=== PATIENT | female | born 1940 | race Caucasian/White ===

== ENCOUNTER 2018-03-20 15:56 | Observation (INO) ==
[2018-03-20] MEDS ORDERED: Sod Chloride 0.9% Inj 1,000 ML IV.CONT SCH (16:00)
--- NOTE | 2018-03-20 16:18 | ED ---
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 Last known well is unclear and may be noon but this has not been confirmed. I spoke with the daughter who stated that she spoke with the patient at 9 AM at which time she was normal. She spoke with her several minutes before calling EMS when she noticed that she had slurred speech and seemed to be confused. She then called family member who went to check on the patient and found her with a facial droop at which time they called EMS. EMS reports a normal blood sugar and blood pressure. The symptoms have not changed since they picked her up. It is very difficult for me to try and understand the patient; when asked when she was last normal she responds with "9, 8, 7, 6, 5, 4, I don't know." Onset (ago): hour(s) Location: Reports speech and left face History of same: No Severity: moderate Exacerbating factors: none On Anticoagulants: No Associated symptoms: Reports denies other symptoms Treatments Prior to Arrival: Reports none Related Data Home Medications Medication Instructions Recorded Confirmed buspirone 15 mg PO BID 03/20/18 03/20/18 diclofenac sodium 75 mg PO BID 03/20/18 03/20/18 docusate sodium 100 mg PO DAILY 03/20/18 03/20/18 levetiracetam 500 mg PO BID 03/20/18 03/20/18 lorazepam 0.5 mg PO TID 03/20/18 03/20/18 lovastatin 40 mg PO DAILY 03/20/18 03/20/18 magnesium citrate 100 mg PO DAILY 03/20/18 03/20/18 metoprolol succinate 25 mg PO DAILY 03/20/18 03/20/18 ondansetron HCl [Zofran] 4 mg PO TID PRN 03/20/18 03/20/18 oxycodone 15 mg PO Q4-6H PRN 03/20/18 03/20/18 prochlorperazine maleate 10 mg PO Q6-8H PRN 03/20/18 03/20/18 venlafaxine 75 mg PO BID 03/20/18 03/20/18 Allergies Allergy/AdvReac Type Severity Reaction Status Date / Time No Known Allergies Allergy Verified 03/20/18 15:59 Review of Systems ROS: all other systems reviewed are negative PMFSH Medical History Medical History Glioblastoma (Chronic) Hypertension (Chronic) Surgical History Surgical History History of bilateral knee replacement (Acute) History of brain surgery (Acute) Family History Family History Other Family history non-contributory Social History Social History Substance History: No History of Abuse Second Hand Smoke Exposure: No Smoking Status: Never smoker How Often Do You Have a Drink Containing Alcohol: Never Recent Travel in [facility] within the Last 8 Weeks: No Recent Out of Country Travel within the Last 8 Weeks: No Exam Narrative Exam Narrative: GENERAL: Well-nourished, well-developed patient, anxious SKIN: Focused skin assessment warm/dry. No rashes. HEAD: Atraumatic. Normocephalic. EYES: Pupils equal and round. No scleral icterus. No injection or drainage. ENT: No nasal bleeding or discharge. Mucous membranes pink and moist. NECK: Trachea midline. No JVD. CARDIOVASCULAR: Regular rate and rhythm. No murmur appreciated. Intact and equal peripheral pulses. RESPIRATORY: No accessory muscle use. Clear to auscultation. Breath sounds equal bilaterally. GASTROINTESTINAL: Abdomen soft, non-tender, nondistended. Hepatic and splenic margins not palpable. MUSCULOSKELETAL: No obvious deformities. No clubbing. No cyanosis. No edema. NEUROLOGICAL: Awake and alert. Marked L facial droop. Slurred speech with some aphasia and confusion. No pronator drift. No appreciable weakness in the extremities. Difficult to test sensation and visual ellsworth secondary to patient 's confusion, dysarthria and aphasia. PSYCHIATRIC: Anxious Course Reevaluation(s) Reevaluation #1: Patient's speech has markedly improved and facial droop is less prominent. Time: 16:36 Consultations Consultation #1: I spoke with Dr Berger, neurologist, whom recommended CT and CTA. Time: 16:01 Consultation #2: I again spoke with Dr Berger, whom stated that the non-contrast CT was okay and he is awaiting CTA results. 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 He stated that there was not something that IR could retrieve. He recommended admission with neurology consult and for her to have 81 mg aspirin daily (presuming she passes the swallow study). Time: 16:54 Initial Documented Vital Signs Temperature 97.9 F 03/20/18 16:32 Pulse Rate 72 03/20/18 16:32 Respiratory Rate 18 03/20/18 16:32 Blood Pressure 173/75 H 03/20/18 16:32 Pulse Oximetry 97 03/20/18 16:32 Last Documented Vital Signs Temperature 97.9 F 03/20/18 16:32 Pulse Rate 75 03/20/18 17:58 Respiratory Rate 18 03/20/18 17:58 Blood Pressure 178/79 H 03/20/18 17:58 Pulse Oximetry 100 03/20/18 17:45 NIH Stroke Scale NIH Stroke Scale Level of Consciousness: 0-Alert Orientation Questions: 1-One task correct Responds to Commands: 0-Both tasks correct Gaze Eye Movement: 0-Horizontal movement WNL Visual Ellsworth: 0-No visual field defect Facial Movement: 2-Partial facial palsy Motor Functions Arm LEFT: 0-No drift Motor Functions Arm RIGHT: 0-No drift Motor Functions Leg LEFT: 0-No drift Motor Functions Leg RIGHT: 0-No drift Limb Ataxia: 0-No ataxia Sensory Loss: 0-No sensory loss Best Language: 1-Mild aphasia Articulation: 1-Mild dysarthia Extinction or Inattention Sensory: 0-Absent Total: 5 Quality Measure Queries Stroke Last date observed well: 03/20/18 Last time observed well: 12:00 Medical Decision Making [facility] Narrative Medical decision making narrative: Patient is a 77-year-old female who presented as a stroke alert with left-sided facial droop, aphasia, dysarthria and some confusion. She is not a candidate for TPA given her medical problems and the lack of an actual last known well time. 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 Dr. Berger, neurologist communications equipment installer, recommended that she be admitted and receive baby aspirin in addition to the rest of the stroke workup. She has been admitted to Dr. Zaragoza, hospitalist communications equipment installer, further evaluation and management. She has had great improvement in her symptoms while in the emergency department. Medical Screen Exam Complete: Yes Emergency Medical Condition: Yes Differential Diagnosis Differential Diagnosis: Differential diagnosis includes but is not limited to intracranial hemorrhage, cerebrovascular accident, focal seizure. Medical Records Medical records reviewed: Yes I reviewed the patient's medical records. Lab Data Result diagrams: 03/20/18 16:13 03/20/18 16:13 Lab Results 03/20/18 03/20/18 03/20/18 Range/Units 16:13 16:13 16:13 CBC w Diff Auto diff final WBC 2.6 L (4.0-11.0) th/mm3 RBC 4.18 (4.00-5.30) mil/mm3 Hgb 13.0 (11.6-15.3) gm/dL Hct 39.3 (35.0-46.0) % MCV 94.0 (80.0-100.0) fL MCH 31.2 (27.0-34.0) pg MCHC 33.2 (32.0-36.0) % RDW 14.5 (11.6-17.2) % Plt Count 105 L (150-450) th/mm3 MPV 8.1 (7.0-11.0) fL Neut % (Auto) 83.4 H (16.0-70.0) % Lymph % (Auto) 9.7 (9.0-44.0) % [place] % (Auto) 6.2 (0.0-8.0) % Eos % (Auto) 0.6 (0.0-4.0) % Baso % (Auto) 0.1 (0.0-2.0) % Neut # (Auto) 2.1 (1.8-7.7) th/mm3 Lymph # (Auto) 0.3 L (1.0-4.8) th/mm3 [place] # (Auto) 0.2 (0.0-0.9) th/mm3 Eos # (Auto) 0.0 (0.0-0.4) th/mm3 Baso # (Auto) 0.0 (0.0-0.2) th/mm3 WBC Differential . Differential Comment . PT 10.7 (9.8-11.6) sec INR 1.1 Ratio APTT 26.2 (23.4-31.7) sec Sodium 140 (136-145) meq/L Potassium 4.2 (3.5-5.1) meq/L Chloride 104 (98-107) meq/L Carbon Dioxide 28.4 (21.0-32.0) meq/L Anion Gap 8 (5-15) meq/L BUN 17 (7-18) mg/dL Creatinine 0.93 (0.50-1.00) mg/dL Estimated GFR 59 L (>89) mL/min POC Glucose (68-110) mg/dl Random Glucose 105 (74-106) mg/dL Calcium 8.4 L (8.5-10.1) mg/dL Total Creatine Kinase 46 (26-192) U/L Troponin I Less than 0.02 L (0.02-0.05) ng/mL Urine Color (Yellw/Straw) Urine Clarity (Clear) Urine pH (5.0-8.5) Ur Specific [place] (1.002-1.035) Urine Protein (Neg-Trace) mg/dL Urine Glucose (UA) (Negative) mg/dL Urine Ketones (Negative) mg/dL Urine Occult Blood (Negative) Urine Nitrate (Negative) Urine Bilirubin (Negative) Urine Urobilinogen (Less than 2) mg/dL Ur Leukocyte Esterase (Negative) Micro UA Comment Ur Microscopic Review Urine Culture Comments Urine Collection Time hours 03/20/18 03/20/18 Range/Units 16:33 17:02 CBC w Diff WBC (4.0-11.0) th/mm3 RBC (4.00-5.30) mil/mm3 Hgb (11.6-15.3) gm/dL Hct (35.0-46.0) % MCV (80.0-100.0) fL MCH (27.0-34.0) pg MCHC (32.0-36.0) % RDW (11.6-17.2) % Plt Count (150-450) th/mm3 MPV (7.0-11.0) fL Neut % (Auto) (16.0-70.0) % Lymph % (Auto) (9.0-44.0) % [place] % (Auto) (0.0-8.0) % Eos % (Auto) (0.0-4.0) % Baso % (Auto) (0.0-2.0) % Neut # (Auto) (1.8-7.7) th/mm3 Lymph # (Auto) (1.0-4.8) th/mm3 [place] # (Auto) (0.0-0.9) th/mm3 Eos # (Auto) (0.0-0.4) th/mm3 Baso # (Auto) (0.0-0.2) th/mm3 WBC Differential Differential Comment PT (9.8-11.6) sec INR Ratio APTT (23.4-31.7) sec Sodium (136-145) meq/L Potassium (3.5-5.1) meq/L Chloride (98-107) meq/L Carbon Dioxide (21.0-32.0) meq/L Anion Gap (5-15) meq/L BUN (7-18) mg/dL Creatinine (0.50-1.00) mg/dL Estimated GFR (>89) mL/min POC Glucose 97 (68-110) mg/dl Random Glucose (74-106) mg/dL Calcium (8.5-10.1) mg/dL Total Creatine Kinase (26-192) U/L Troponin I (0.02-0.05) ng/mL Urine Color Yellow (Yellw/Straw) Urine Clarity Clear (Clear) Urine pH 7.0 (5.0-8.5) Ur Specific [place] Less/equal 1.005 (1.002-1.035) Urine Protein Negative (Neg-Trace) mg/dL Urine Glucose (UA) Negative (Negative) mg/dL Urine Ketones Negative (Negative) mg/dL Urine Occult Blood Negative (Negative) Urine Nitrate Negative (Negative) Urine Bilirubin Negative (Negative) Urine Urobilinogen 0.2 (Less than 2) mg/dL Ur Leukocyte Esterase Negative (Negative) Micro UA Comment Culture not ind Ur Microscopic Review Microscopic reviewed Urine Culture Comments Culture not ind Urine Collection Time 1702 hours Imaging Data Radiologist's impression: Head CT 03/20/18 15:59 CONCLUSION: 1. Mild periventricular and subcortical white matter small vessel ischemic changes which are slightly worse on the left than the right. 2. No acute infarct, acute hemorrhage, midline shift or extra axial fluid collections. Findings were discussed with Dr. Berger at 4:24 PM on 03/20/2018. Head CTA 03/20/18 16:00 CONCLUSION: 1. Complete occlusion of the left carotid system felt to be chronic in nature with good collateralization intracranially. Report was called by [ to Dr. Berger at 1648 hours ] Neck CTA 03/20/18 16:00 CONCLUSION: 1. Chronic appearing occlusion of the left carotid arteries with reconstitution of the left anterior circulation via anterior to indicating artery. 2. No significant right carotid flow-limiting stenosis. 3. Vertebral arteries are patent bilaterally. 4. Partially imaged airspace consolidation in the left upper lobe. Consider further evaluation with chest radiographs. Findings were personally discussed with Dr. Berger at 1650 p.m. Discharge Plan Discharge Disposition Patient Disposition: 30 Still Patient Discharge Condition Condition: Stable Discharge Details Diagnosis: Acute cerebrovascular accident Physicians Team ED Provider: Abena Dong Primary Care Provider: UNKNOWN, Attending Provider: Matthew Zaragoza Other Providers: Bridgette Webster Discharge Interventions Interventions: ED Discharge Assessment Last Done: 03/20/18 18:48 Status ED Status: Admitted Patient
--- NOTE | 2018-03-20 16:26 | CT ---
EXAM DATE: 03/20/2018 4:11 PM EST AGE/SEX: 77 years / Female INDICATIONS: STROKE ALERT CLINICAL DATA: This is the patient's initial encounter. Patient reports that signs and symptoms have been present for 1 day and indicates a pain score of Nonresponsive. MEDICAL/SURGICAL HISTORY: Non-responsive. Non-responsive. RADIATION DOSE: 53.86 CTDI (mGy) COMPARISON: No prior exams available for comparison. TECHNIQUE: CT of the head without contrast. Using automated exposure control and adjustment of the mA and/or kV according to patient size, radiation dose was kept as low as reasonably achievable to ob tain optimal diagnostic quality images. DICOM format image data is available electronically for revi ew and comparison. FINDINGS: Cerebrum: The ventricles are normal for age. No evidence of midline shift, mass lesion, hemorrhage or acute infarction. No extraaxial fluid collections are seen. Mild periventricular and subcortical white matter small vessel ischemic changes are noted and are slightly worse on the left than the righ t. Posterior Fossa: The cerebellum and brainstem are intact. The 4th ventricle is midline. The cerebe llopontine angle is unremarkable. Extracranial: The visualized portion of the orbits is intact. Skull: The calvaria is intact. No evidence of skull fracture. CONCLUSION: 1. Mild periventricular and subcortical white matter small vessel ischemic changes which are slightl y worse on the left than the right. 2. No acute infarct, acute hemorrhage, midline shift or extra axial fluid collections. Findings were discussed with Dr. Berger at 4:24 PM on 03/20/2018. Electronically signed by: Matthew Saravia MD 03/20/2018 4:25 PM EST
[2018-03-20 16:27] LABS: Baso % (Auto) 0.1 % (0.0-2.0); Eos % (Auto) 0.6 % (0.0-4.0); Hematocrit 39.3 % (35.0-46.0); Lymph # (Auto) 0.3 th/mm3 (1.0-4.8); Lymph % (Auto) 9.7 % (9.0-44.0); Mean Corpuscular HGB Conc 33.2 % (32.0-36.0); Mean Corpuscular Hemoglobin 31.2 pg (27.0-34.0); Mean Platelet Volume 8.1 fL (7.0-11.0); Mono # (Auto) 0.2 th/mm3 (0.0-0.9); Mono % (Auto) 6.2 % (0.0-8.0); Neut # (Auto) 2.1 th/mm3 (1.8-7.7); Neut % (Auto) 83.4 % (16.0-70.0); Platelet Count 105 th/mm3 (150-450); Red Blood Count 4.18 mil/mm3 (4.00-5.30); Red Cell Distribution Width 14.5 % (11.6-17.2); White Blood Count 2.6 th/mm3 (4.0-11.0)
[2018-03-20 16:35] LABS: Chloride 104 meq/L (98-107); Potassium 4.2 meq/L (3.5-5.1); Sodium 140 meq/L (136-145)
[2018-03-20 16:38] LABS: Anion Gap 8 meq/L (5-15); Calcium 8.4 mg/dL (8.5-10.1); Carbon Dioxide 28.4 meq/L (21.0-32.0); Glucose,Random 105 mg/dL (74-106)
[2018-03-20 16:39] LABS: Blood Urea Nitrogen 17 mg/dL (7-18)
[2018-03-20 16:42] LABS: Glomerular Filtration Rate 59 mL/min (>89)
[2018-03-20 16:43] LABS: Activated Partial Thrombo Time 26.2 sec (23.4-31.7); INR 1.1 Ratio; Prothrombin Time 10.7 sec (9.8-11.6)
[2018-03-20 16:46] LABS: Creatine Kinase 46 U/L (26-192)
--- NOTE | 2018-03-20 16:57 | CT ---
EXAM DATE: 03/20/2018 4:48 PM EST AGE/SEX: 77 years / Female INDICATIONS: STROKE ALERT CLINICAL DATA: This is the patient's initial encounter. Patient reports that signs and symptoms have been present for 1 day and indicates a pain score of Nonresponsive. MEDICAL/SURGICAL HISTORY: Non-responsive. Non-responsive. RADIATION DOSE: 43.07 CTDI (mGy) ; Combined studies COMPARISON: No prior exams available for comparison. TECHNIQUE: Volumetric scanning was performed using a multirow detector CT scanner during bolus infus ion of 75ML ml Visipaque 320 (iodixanol) nonionic water-soluble contrast as a cumulative dose for mu ltiple exams. The data was postprocessed with a variety of visualization algorithms including full- volume maximum intensity projection, multiplanar sliding thin-slab reformation, curved-planar reforma tion, and surface-rendering techniques. Using automated exposure control and adjustment of the mA an d/or kV according to patient size, radiation dose was kept as low as reasonably achievable to obtain optimal diagnostic quality images. DICOM format image data is available electronically for review an d comparison. Percent stenosis is calculated using the diameter of the stenotic region over the diameter of the nor mal distal internal carotid artery. FINDINGS: Aortic Arch: There is a three-vessel origin of the great vessels from the aorta. There is occlusion of the left carotid origin. Right Carotid: The common carotid artery is intact. Minimal calcified plaque in the distal bulb with out significant flow-limiting stenosis. Internal carotid artery is otherwise patent to the skull base . The external carotid artery is intact. Left Carotid: The carotid artery is completely occluded with some reconstitution of external carotid branches. The left anterior circulation reconstitutes via the anterior commuting artery. Vertebrals: The vertebral arteries have a symmetric diameter. No stenotic lesions are seen. General Findings: Partially imaged airspace consolidation in the left upper lobe in the last axial im ages. Thyroid is unremarkable on CT. No gross necrotic adenopathy. CONCLUSION: 1. Chronic appearing occlusion of the left carotid arteries with reconstitution of the left anterior circulation via anterior to indicating artery. 2. No significant right carotid flow-limiting stenosis. 3. Vertebral arteries are patent bilaterally. 4. Partially imaged airspace consolidation in the left upper lobe. Consider further evaluation with chest radiographs. Findings were personally discussed with Dr. Berger at 1650 p.m. Electronically signed by: Kendell Hardy MD 03/20/2018 4:56 PM EST
--- NOTE | 2018-03-20 16:57 | CT ---
EXAM DATE: 03/20/2018 4:48 PM EST AGE/SEX: 77 years / Female INDICATIONS: STROKE ALERT CLINICAL DATA: This is the patient's initial encounter. Patient reports that signs and symptoms have been present for 1 day and indicates a pain score of Nonresponsive. MEDICAL/SURGICAL HISTORY: Non-responsive. Non-responsive. RADIATION DOSE: 43.07 CTDI (mGy) ; Combined studies COMPARISON: [facility], CT HEAD W/O CONTRAST, 03/20/2018. . TECHNIQUE: Volumetric scanning was performed using a multi-row detector CT scanner during bolus infu laurence of 75ML ml Visipaque 320 (iodixanol) nonionic water-soluble contrast as a cumulative dose for m ultiple exams. The data was post processed with a variety of visualization algorithms including ful l volume maximum intensity projection, multi-planar sliding thin slab reformation, curved planar refo rmation, and surface rendering techniques. Using automated exposure control and adjustment of the mA and/or kV according to patient size, radiation dose was kept as low as reasonably achievable to obta in optimal diagnostic quality images. DICOM format image data is available electronically for review and comparison. FINDINGS: There is excellent visualization of the major intracranial arteries out to the second-order branch ve ssels. There is chronic occlusion of the left ICA throughout its entirety. Good collateralization fro m an anterior communicating artery and the left posterior communicating artery. There is good opacifi cation of the left anterior cerebral and middle cerebral territories. No filling defects observed wit hin the major intracranial vessels. Posterior circulation is unremarkable. Please see the CTA of the neck and CT of the head reported separately. CONCLUSION: 1. 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 Report was called by [ to Dr. Berger at 1648 hours ] Electronically signed by: Wilner Angulo MD 03/20/2018 4:55 PM EST
[2018-03-20 17:29] LABS: Bilirubin,Urine Negative (Negative); Clarity,Urine Clear (Clear); Color,Urine Yellow (Yellw/Straw); Glucose,Urine (UA) Negative (Negative); Leukocyte Esterase,Urine Negative (Negative); Nitrite,Urine Negative (Negative); Specific Gravity,Urine Less/Equal 1.005 (1.002-1.035); Urobilinogen,Urine 0.2 mg/dL (Less than 2)
[2018-03-20 17:34] LABS: Collection Time,Urine 1702 hours
[2018-03-20] MEDS ORDERED: Bisacodyl 10 MG Supp RECTAL PRN (17:58)
[2018-03-20] MEDS ORDERED: Acetaminophen 325 MG Tablet PO PRN (17:58)
--- NOTE | 2018-03-20 18:02 | P.HP ---
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 Supposedly patient's daughter called EMS after speaking to her mother on the phone and noticed some slurring of speech and confusion. EMS found her with facial droop and confusion. Patient does live at home alone and is able to care for self. At the time of assessment tonight patient is awake, oriented to self and place, states the year is 1989. There is apparent expressive aphasia and fumbling on words. I was able to note that patient did complain of right extremity numbness and tingling this afternoon during episode of facial droop and speech slurring. Patient is also emotional on assessment. crying out for her daughter to come see her. Patient does have a history of chronic hyperlipidemia and reportedly a significant chronic left carotid blockage. 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 It should be noted that patient is seen by Dr. Wharton, oncology, and underwent her last chemotherapy 2 weeks ago. - Diagnosis (1) Hypertension (2) Expressive aphasia Review of Systems All other systems reviewed negative except as stated in HPI PMFSH - History History Provided By: Customer Service Agent / EMT - Medical History Medical History: Medical History (Last Reviewed 03/20/18 @ 18:18 by Laura Brooke) Glioblastoma Hypertension - Surgical History Surgical History: Surgical History (Last Updated 03/20/18 @ 18:35 by Laura Brooke) History of bilateral knee replacement History of brain surgery - Family History Family History: Family History (Last Updated 03/20/18 @ 18:01 by Laura Brooke) Other Family history non-contributory - Social History I have reviewed the patient's Social History: Yes - Tobacco History Second Hand Smoke Exposure: No Smoking Status: Never smoker - Alcohol History How Often Do You Have a Drink Containing Alcohol: Never - Substance Use History Substance History: No History of Abuse - Travel History Recent Travel in the [place] Within the Last 8 Weeks: No Recent Travel Out of the Country Within the Last 8 Weeks: No - Immunization History Tetanus Immunization: Unsure Medications and Allergies Active Medications: Active Medications Sodium Chloride (Ns Inj) 1,000 mls @ 70 mls/hr IV.CONT .[id number] MARKEL Stop: 03/21/18 06:17 Last Admin: 03/20/18 17:04 Dose: 70 mls/hr Sodium Chloride (Ns Flush) 2 ml IV.FLUSH PRN PRN PRN Reason: FLUSH AFTER USING IV ACCESS Allergies Allergy/AdvReac Type Severity Reaction Status Date / Time No Known Allergies Allergy Verified 03/20/18 15:59 Home Medications Medication Instructions Recorded Confirmed Type buspirone 15 mg PO BID 03/20/18 03/20/18 History diclofenac sodium 75 mg PO BID 03/20/18 03/20/18 History docusate sodium 100 mg PO DAILY 03/20/18 03/20/18 History levetiracetam 500 mg PO BID 03/20/18 03/20/18 History lorazepam 0.5 mg PO TID 03/20/18 03/20/18 History lovastatin 40 mg PO DAILY 03/20/18 03/20/18 History magnesium citrate 100 mg PO DAILY 03/20/18 03/20/18 History metoprolol succinate 25 mg PO DAILY 03/20/18 03/20/18 History ondansetron HCl [Zofran] 4 mg PO TID PRN 03/20/18 03/20/18 History oxycodone 15 mg PO Q4-6H PRN 03/20/18 03/20/18 History prochlorperazine maleate 10 mg PO Q6-8H PRN 03/20/18 03/20/18 History venlafaxine 75 mg PO BID 03/20/18 03/20/18 History Exam Vital signs: Vital Signs 03/20/18 16:32 03/20/18 16:35 03/20/18 16:41 Temperature 97.9 F Pulse Rate 72 73 75 Respiratory Rate 18 18 Blood Pressure 173/75 H 173/75 H Pulse Oximetry 97 96 03/20/18 16:44 03/20/18 17:45 Temperature Pulse Rate 74 Respiratory Rate 18 Blood Pressure 182/64 H Pulse Oximetry 97 100 Intake & Output 03/19/18 03/20/18 03/20/18 18:59 06:59 18:59 Weight 92.8 kg Narrative: GENERAL: Well-developed, well-nourished patient with apparent right facial droop , expressive aphasia and confusion to year. SKIN: Warm and dry. No rash. HEAD: Normocephalic. Atraumatic. EYES: Pupils equal and round. No scleral icterus. No injection or drainage. Tearful. ENT: No nasal bleeding or discharge. Mucous membranes pink and moist. NECK: Supple. Trachea midline. CARDIOVASCULAR: Regular rate and rhythm. S1, S2 noted. RESPIRATORY: . Breath sounds equal bilaterally. GASTROINTESTINAL: Abdomen soft, non-tender, nondistended. Normoactive bowel sounds x4. MUSCULOSKELETAL: No obvious deformities. Extremities without clubbing, cyanosis , or edema. NEUROLOGICAL: Awake and alert. Motor grossly within normal limits. 4/5 muscle strength in bilateral upper and lower extremities. Expressive aphasia. Results - Labs CBC & Chem 7: 03/20/18 16:13 03/20/18 16:13 Labs: Laboratory Results - last 24 hr 03/20/18 03/20/18 03/20/18 16:13 16:13 16:13 CBC w Diff Auto diff final WBC 2.6 L RBC 4.18 Hgb 13.0 Hct 39.3 MCV 94.0 MCH 31.2 MCHC 33.2 RDW 14.5 Plt Count 105 L MPV 8.1 Neut % (Auto) 83.4 H Lymph % (Auto) 9.7 Bailey % (Auto) 6.2 Eos % (Auto) 0.6 Baso % (Auto) 0.1 Neut # (Auto) 2.1 Lymph # (Auto) 0.3 L Bailey # (Auto) 0.2 Eos # (Auto) 0.0 Baso # (Auto) 0.0 WBC Differential . Differential Comment . PT 10.7 INR 1.1 APTT 26.2 Sodium 140 Potassium 4.2 Chloride 104 Carbon Dioxide 28.4 Anion Gap 8 BUN 17 Creatinine 0.93 Estimated GFR 59 L POC Glucose Random Glucose 105 Calcium 8.4 L Total Creatine Kinase 46 Troponin I Less than 0.02 L Urine Color Urine Clarity Urine pH Ur Specific [place] Urine Protein Urine Glucose (UA) Urine Ketones Urine Occult Blood Urine Nitrate Urine Bilirubin Urine Urobilinogen Ur Leukocyte Esterase Micro UA Comment Ur Microscopic Review Urine Culture Comments Urine Collection Time 03/20/18 03/20/18 16:33 17:02 CBC w Diff WBC RBC Hgb Hct MCV MCH MCHC RDW Plt Count MPV Neut % (Auto) Lymph % (Auto) Bailey % (Auto) Eos % (Auto) Baso % (Auto) Neut # (Auto) Lymph # (Auto) Bailey # (Auto) Eos # (Auto) Baso # (Auto) WBC Differential Differential Comment PT INR APTT Sodium Potassium Chloride Carbon Dioxide Anion Gap BUN Creatinine Estimated GFR POC Glucose 97 Random Glucose Calcium Total Creatine Kinase Troponin I Urine Color Yellow Urine Clarity Clear Urine pH 7.0 Ur Specific [place] Less/equal 1.005 Urine Protein Negative Urine Glucose (UA) Negative Urine Ketones Negative Urine Occult Blood Negative Urine Nitrate Negative Urine Bilirubin Negative Urine Urobilinogen 0.2 Ur Leukocyte Esterase Negative Micro UA Comment Culture not ind Ur Microscopic Review Microscopic reviewed Urine Culture Comments Culture not ind Urine Collection Time 1702 - Imaging Impressions Head CT 03/20/18 15:59 CONCLUSION: 1. Mild periventricular and subcortical white matter small vessel ischemic changes which are slightly worse on the left than the right. 2. No acute infarct, acute hemorrhage, midline shift or extra axial fluid collections. Findings were discussed with Dr. Berger at 4:24 PM on 03/20/2018. Head CTA 03/20/18 16:00 CONCLUSION: 1. Complete occlusion of the left carotid system felt to be chronic in nature with good collateralization intracranially. Report was called by [ to Dr. Berger at 1648 hours ] Neck CTA 03/20/18 16:00 CONCLUSION: 1. Chronic appearing occlusion of the left carotid arteries with reconstitution of the left anterior circulation via anterior to indicating artery. 2. No significant right carotid flow-limiting stenosis. 3. Vertebral arteries are patent bilaterally. 4. Partially imaged airspace consolidation in the left upper lobe. Consider further evaluation with chest radiographs. Findings were personally discussed with Dr. Berger at 1650 p.m. Caprini VTE Risk Assessment Caprini VTE Risk Assessment: Moderate/High Risk (score >= 2) Caprini Risk Assessment Model: Point Value = 1 Point Value = 2 Point Value = 3 Point Value = 5 Age 41-60 Minor surgery BMI > 25 kg/m2 Swollen legs Varicose veins or History of unexplained or recurrent spontaneous Oral contraceptives or hormone replacement Sepsis (< 1 month) Serious lung disease, including pneumonia (< 1 month) Abnormal pulmonary function Acute myocardial infarction Congestive heart failure (< 1 month) History of inflammatory bowel disease Medical patient at bed rest Age 61-74 Arthroscopic surgery Major open surgery (> 45 min) Laparoscopic surgery (> 45 min) Malignancy Confined to bed (> 72 hours) Immobilizing plaster cast Central venous access Age >= 75 History of VTE Family history of VTE Factor V Leiden Prothrombin [id number] Lupus anticoagulant Anticardiolipin antibodies Elevated serum homocysteine Heparin-induced thrombocytopenia Other congenital or acquired thrombophilia Stroke (< 1 month) Elective arthroplasty Hip, pelvis, or leg fracture Acute spinal cord injury (< 1 month) Prophylaxis Regimen: Total Risk Factor Score Risk Level Prophylaxis Regimen 0-1 Low Early ambulation 2 Moderate Order ONE of the following: *Sequential Compression Device (SCD) *Heparin 5000 units SQ BID 3-4 Higher Order ONE of the following medications: *Heparin 5000 units SQ TID *Enoxaparin/Lovenox 40 mg SQ daily (WT < 150 kg, CrCl > 30 mL/min) *Enoxaparin/Lovenox 30 mg SQ daily (WT < 150 kg, CrCl > 10-29 mL/min) *Enoxaparin/Lovenox 30 mg SQ BID (WT < 150 kg, CrCl > 30 mL/min) AND/OR *Sequential Compression Device (SCD) 5 or more Highest Order ONE of the following medications: *Heparin 5000 units SQ TID (Preferred with Epidurals) *Enoxaparin/Lovenox 40 mg SQ daily (WT < 150 kg, CrCl > 30 mL/min) *Enoxaparin/Lovenox 30 mg SQ daily (WT < 150 kg, CrCl > 10-29 mL/min) *Enoxaparin/Lovenox 30 mg SQ BID (WT < 150 kg, CrCl > 30 mL/min) AND *Sequential Compression Device (SCD) Assessment and Plan - Assessment (1) Hypertension Code(s): I10 - Essential (primary) hypertension Status: Acute (2) Expressive aphasia Code(s): R47.01 - Aphasia Status: Acute - Plan This is a 77-year-old female patient with: Dysarthria, slurred speech, expressive aphasia, right hand numbness and right facial droop rule out acute CVA/TIA History of glioblastoma and status post resection and now with recurrence on chemotherapy -Head CT reviewed showing some periventricular and subcortical white matter small vessel ischemic changes. No acute findings. -Neurology has been consulted, stroke alert was called. -Started on aspirin and continued. -Echocardiogram ordered and pending, follow. -Continue on cardiac telemetry, monitor for any arrhythmias. -Neck/head CTA showing complete left carotid occlusion which is chronic for the patient. Neurology aware. -MR head has been ordered and pending, follow. -Consult PT, OT and speech therapy for evaluation. -Ensure hydration, continue IVF. -Allow for permissive hypertension for now. Await MRI. -CBC, BMP and UA reviewed, essentially unremarkable. -Patient appears to be on multiple medications that may have caused some of her symptoms including opioids, benzos, SSRIs and antipsychotics. Will hold for now and assess tomorrow. -Supportive care. Close monitoring. Hypertension, chronic -Allow permissive hypertension. Monitor BP trends. Hyperlipidemia, chronic -Continue home statin. DVT Prophylaxis: SCDs.
--- NOTE | 2018-03-20 20:31 | MB ---
cc: Jose Berger MD, PhD DATE: 03/20/2018 TELE-NEUROLOGY CONSULT REASON FOR CONSULTATION: Stroke alert. HISTORY OF PRESENT ILLNESS: Ms. Yanez is a 77-year-old woman who has a history of glioblastoma currently receiving chemotherapy, who developed sudden onset of slurred speech, difficulty getting words out and a left facial droop. This was initially reported to have started at noon time, but there is some ambiguity in the history. It may have actually begun sooner than that. The patient's initial NIH stroke scale was a 4 or 5. PAST MEDICAL HISTORY: Remarkable for glioblastoma and hypertension. History of craniotomy for glioblastoma. MEDICATIONS: Apparently receiving chemotherapy. Not on any anticoagulation. NEUROLOGIC EXAMINATION: This is conducted via the teleneurology system. VITAL SIGNS: Blood pressure 182/64, pulse 74, respiratory rate is 18. HIGHER CORTICAL FUNCTION: On higher cortical function testing, the patient is alert. Her speech is mildly dysarthric, but not aphasic. She is able to answer simple questions. She is able to follow commands. She is able to repeat simple phrases. There is no neglect. Cranial nerves: There is a trace left upper motor neuron VII palsy. Otherwise, all cranial nerves are normal. MOTOR: She has no pronator drift of the upper extremities. She moves both upper extremities equally. She has no drift of the lower extremities. She is able to hold the right leg and the left leg out for at least 15 seconds each with no drift. Sensory exam reportedly normal. DIAGNOSTIC DATA: CT of the brain reveals no acute change. CT angiogram. This was discussed with Dr. Saravia. There is no evidence of large vessel occlusion. There was a completely occluded left carotid artery. LABORATORY DATA: CBC : The white count is 2600, hemoglobin 13, hematocrit 39.3%, platelet count 105,000. PT 10.7, INR 1.1, aPTT 26.2. Sodium is 140, potassium 4.2, chloride 104, CO2 28.4, BUN is 17, creatinine 0.93, GFR 59, glucose 97. Calcium 8.4. Urinalysis: pH is 7, specific gravity less than 1.005. IMPRESSION: Suspect that this event may have been a TIA, as the symptoms are resolving presently. A focal seizure would also be in the differential. The patient is not a candidate for IV tPA given the resolution of symptoms, as well as the history of glioblastoma, as well as the uncertainty regarding time of onset. She is not a candidate for interventional therapy since there is no evidence of large vessel occlusion intracranially. RECOMMENDATIONS: Start aspirin 81 mg daily. Further evaluation be conducted by Dr. Webster, who is covering for Neurology inpatient consults. Would recommend obtaining an MRI of the brain, EEG and echocardiogram, as well as lipid panel. Jose Berger MD, PhD IVA/nanci , 06:16 PM , 06:24 PM
[2018-03-20] MEDS ORDERED: levETIRAcetam 500 MG Tablet PO SCH (21:00)
--- NOTE | 2018-03-21 08:56 | P.PNIM ---
Subjective Interval history: Follow up dysarthria, expressive aphasia, right facial droop, confusion and altered mental status. Patient seen and examined, lying in bed comfortably in nad. No acute events overnight. Daughter at bedside and updated. Requesting that patient be discharged and sent home to go to [facility] where family is and get admitted. Refusing testing at this time. Neurology at bedside and updated, spoke to daughter at length and will dc home to be admitted to a hospital in [facility]. Medications adjusted per neuro. Physical Exam Vital signs: Vital Signs 03/20/18 16:32 03/20/18 16:35 03/20/18 16:41 Temperature 97.9 F Pulse Rate 72 73 75 Respiratory Rate 18 18 Blood Pressure 173/75 H 173/75 H Pulse Oximetry 97 96 03/20/18 16:44 03/20/18 17:45 03/20/18 17:58 Temperature Pulse Rate 74 75 Respiratory Rate 18 18 Blood Pressure 182/64 H 178/79 H Pulse Oximetry 97 100 03/20/18 19:34 03/20/18 20:00 03/21/18 00:00 Temperature 97.7 F 96.8 F L Pulse Rate 80 73 Respiratory Rate 18 20 Blood Pressure 170/77 H 171/73 H Pulse Oximetry 95 98 98 03/21/18 04:00 Temperature 97.3 F L Pulse Rate 99 H Respiratory Rate 20 Blood Pressure 170/81 H Pulse Oximetry 96 Intake & Output 03/20/18 03/21/18 03/21/18 18:59 06:59 18:59 Intake Total 121 / 121 Output Total 800 / 800 Balance -679 / -679 Weight 92.8 kg 93 kg Intake: IV 121 / 121 NS Inj 1,000 ML @ 70 mls/hr IV. 121 / 121 CONT .[id number] [facility] Rx#: [id number] Output: Urine Amount (Catheter) 800 / 800 Indwelling Urethral Catheter 800 / 800 Other: Date of Last Bowel Movement 03/18/18 Weight On Admission 92.8 kg Narrative: GENERAL: Well-developed, well-nourished patient improved right facial droop, improved expressive aphasia, no confusion. Eating breakfast. SKIN: Warm and dry. No rash. HEAD: Normocephalic. Atraumatic. EYES: Pupils equal and round. No scleral icterus. No injection or drainage. ENT: No nasal bleeding or discharge. Mucous membranes pink and moist. NECK: Supple. Trachea midline. CARDIOVASCULAR: Regular rate and rhythm. S1, S2 noted. RESPIRATORY: . Breath sounds equal bilaterally. GASTROINTESTINAL: Abdomen soft, non-tender, nondistended. Normoactive bowel sounds x4. MUSCULOSKELETAL: No obvious deformities. Extremities without clubbing, cyanosis , or edema. NEUROLOGICAL: Awake and alert. Motor grossly within normal limits. 4/5 muscle strength in bilateral upper and lower extremities. - Urinary Catheter Management Indwelling Urethral Catheter Cath placed during this visit: yes Reason for continuing: Acute urinary retention Insertion date: 03/20/18 Insertion time: 17:00 Results - Labs CBC & Chem 7: 03/20/18 16:13 03/20/18 16:13 Laboratory Results - last 24 hr 03/20/18 03/20/18 03/20/18 16:13 16:13 16:13 CBC w Diff Auto diff final WBC 2.6 L RBC 4.18 Hgb 13.0 Hct 39.3 MCV 94.0 MCH 31.2 MCHC 33.2 RDW 14.5 Plt Count 105 L MPV 8.1 Neut % (Auto) 83.4 H Lymph % (Auto) 9.7 [place] % (Auto) 6.2 Eos % (Auto) 0.6 Baso % (Auto) 0.1 Neut # (Auto) 2.1 Lymph # (Auto) 0.3 L [place] # (Auto) 0.2 Eos # (Auto) 0.0 Baso # (Auto) 0.0 WBC Differential . Differential Comment . PT 10.7 INR 1.1 APTT 26.2 Sodium 140 Potassium 4.2 Chloride 104 Carbon Dioxide 28.4 Anion Gap 8 BUN 17 Creatinine 0.93 Estimated GFR 59 L POC Glucose Random Glucose 105 Calcium 8.4 L Total Creatine Kinase 46 Troponin I Less than 0.02 L Urine Color Urine Clarity Urine pH Ur Specific [place] Urine Protein Urine Glucose (UA) Urine Ketones Urine Occult Blood Urine Nitrate Urine Bilirubin Urine Urobilinogen Ur Leukocyte Esterase Micro UA Comment Ur Microscopic Review Urine Culture Comments Urine Collection Time 03/20/18 03/20/18 16:33 17:02 CBC w Diff WBC RBC Hgb Hct MCV MCH MCHC RDW Plt Count MPV Neut % (Auto) Lymph % (Auto) [place] % (Auto) Eos % (Auto) Baso % (Auto) Neut # (Auto) Lymph # (Auto) [place]lin # (Auto) Eos # (Auto) Baso # (Auto) WBC Differential Differential Comment PT INR APTT Sodium Potassium Chloride Carbon Dioxide Anion Gap BUN Creatinine Estimated GFR POC Glucose 97 Random Glucose Calcium Total Creatine Kinase Troponin I Urine Color Yellow Urine Clarity Clear Urine pH 7.0 Ur Specific [place] Less/equal 1.005 Urine Protein Negative Urine Glucose (UA) Negative Urine Ketones Negative Urine Occult Blood Negative Urine Nitrate Negative Urine Bilirubin Negative Urine Urobilinogen 0.2 Ur Leukocyte Esterase Negative Micro UA Comment Culture not ind Ur Microscopic Review Microscopic reviewed Urine Culture Comments Culture not ind Urine Collection Time 1702 - Imaging Impressions Head CT 03/20/18 15:59 CONCLUSION: 1. Mild periventricular and subcortical white matter small vessel ischemic changes which are slightly worse on the left than the right. 2. No acute infarct, acute hemorrhage, midline shift or extra axial fluid collections. Findings were discussed with Dr. Berger at 4:24 PM on 03/20/2018. Head CTA 03/20/18 16:00 CONCLUSION: 1. Complete occlusion of the left carotid system felt to be chronic in nature with good collateralization intracranially. Report was called by [ to Dr. Berger at 1648 hours ] Neck CTA 03/20/18 16:00 CONCLUSION: 1. Chronic appearing occlusion of the left carotid arteries with reconstitution of the left anterior circulation via anterior to indicating artery. 2. No significant right carotid flow-limiting stenosis. 3. Vertebral arteries are patent bilaterally. 4. Partially imaged airspace consolidation in the left upper lobe. Consider further evaluation with chest radiographs. Findings were personally discussed with Dr. Berger at 1650 p.m. Assessment and Plan - Assessment (1) Hypertension Code(s): I10 - Essential (primary) hypertension Status: Acute (2) Expressive aphasia Code(s): R47.01 - Aphasia Status: Acute - Plan This is a 77-year-old female patient with: Dysarthria, slurred speech, expressive aphasia, right hand numbness and right facial droop rule out acute CVA/TIA. Somewhat improved. History of glioblastoma and status post resection and now with recurrence on chemotherapy -Head CT reviewed showing some periventricular and subcortical white matter small vessel ischemic changes. No acute findings. -Neurology has been consulted, stroke alert was called. Has seen patient this morning and spoke with patient's daughter at length. Will defer all workup including MRI, ECHO to hospital in [facility] where she will go to get work up and admitted. Patient has oncologist there. -Started on aspirin and continued. -Neuro added Vimpat 50 mg BID. Also has continued Keppra 500 mg PO BID. -Cardiac telemetry overnight showing no arrhythmias. -Neck/head CTA showing complete left carotid occlusion which is chronic for the patient. -Consult PT, OT and speech therapy deferred to hospital in [facility]. -CBC, BMP and UA reviewed, essentially unremarkable. Hypertension, chronic -Allow permissive hypertension. Monitor BP trends. Hyperlipidemia, chronic -Continue home statin. DVT Prophylaxis: SCDs. Discharge Planning: Will DC home with daughter to follow up with oncologist and neurologist in [facility]. DC home. Follow up PCP, neuro, oncologist. RX as written Diet as tolerated Activity as tolerated Stable.
[2018-03-21] MEDS ORDERED: Lacosamide 50 MG Tablet PO SCH (09:00)
[2018-03-21] MEDS ORDERED: levETIRAcetam 500 MG Tablet PO SCH (09:00)
[2018-03-21 09:22] VITALS: BP 170/76; PULSE 64; RESP 15; TEMP 97.6
[2018-03-21 10:45] VITALS: O2SAT 98
--- NOTE | 2018-03-21 11:47 | MB ---
cc: Bridgette Webster MD DATE: 03/21/2018 HISTORY OF PRESENT ILLNESS: She was a stroke alert last night, seen by Neurology, Dr. Berger. 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 That is where she is from. She came into the ED with speech issues, aphasia, confusion, some facial droop. The patient lives home alone, able to care for herself. She seems to be back to baseline, but at times confuses words. She has residual right-sided weakness from her neck, but has tremor since the tumor in the right hand as well. She has a history of hyperlipidemia, left carotid occlusion. CTA of the carotid shows a left carotid occlusion. She has a history of hypertension as well as the glioblastoma. PAST SURGICAL HISTORY: Bilateral knee replacement, glioblastoma excision. SOCIAL HISTORY: Does not smoke. No history of alcohol abuse. CURRENT MEDICATIONS: She is on Keppra. Recently, she cut the dose down. She should be on 500 mg b.i.d. PHYSICAL EXAMINATION: VITAL SIGNS: Temperature is 97.3, pulse 99, respiratory rate 20, blood pressure 170/81. NECK: Supple. I do not appreciate any bruits. HEART: Regular. NEUROLOGIC: She is awake, alert. Her speech: She does have some expressive aphasia, right facial asymmetry. Pupils reactive. Tongue midline. Motor: Some weakness in the right arm with tremor. No cogwheeling. Tremor noted on [id number]. No leg lag. Toes withdraw. Gait is withheld. LABORATORY DATA: Reviewed. White count 2.6, platelets 105,000. Coag panel normal. Chemistries: GFR is 59, calcium 8.4. Sodium 140, potassium 4.2, glucose 97. Urine was unremarkable. CT head shows mild periventricular and subcortical white matter disease, slightly worse on the left than the right. They did not see anything acute. Reviewing the image myself and of course this is without contrast, I do not see any gross vasogenic edema. I see increased white matter changes that may be residual from tumor. As you know, MRI would be highly specific. She did have a CTA of the [place], complete occlusion left carotid with collateralization and CT carotid shows chronic appearing occlusion, reconstitution of the left anterior circulation. No right carotid disease. Vertebral arteries are patent, partially imaged air space consolidation in left upper lobe. ASSESSMENT AND PLAN: A 77-year-old woman with glioblastoma with some speech issues. There may be seizure-like events versus the new tumor that I am told was found. Her daughter wants to take her back to [place] to have her admitted as well as followed up with Oncology there instead of doing MRI here. At this point in time, we will keep her on a baby aspirin. Increase her Keppra back to 500 mg twice a day. I am going to add lacosamide 50 mg b.i.d. 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 There is no surgical indication at this point in time. Have her follow up with a neurologist and her oncologist in [place], [place] this week. MD EDEL Gomez/lucio , 08:55 AM , 09:03 AM
--- NOTE | 2018-03-21 13:09 | ECG ---
Date Performed: 03/20/2018 Time Performed: 16:53:02 PTAGE: 77 years EKG: Sinus rhythm NORMAL ECG NO PREVIOUS TRACING DOCTOR: Víctor Palacios Interpretating Date/Time 03/21/2018 13:07:52
== END 2018-03-21 11:44 | disposition home or self-care (01) ==
LOC: PHED 15:56 → PHEDA 17:51 → INTOOBSV 17:51 → PHEDA 19:15 → PH3 19:17
PROVIDERS: ADMIT Internal Medicine; ATTEND Internal Medicine